=== PATIENT | male | born 1975 | race Caucasian/White ===

== ENCOUNTER 2016-12-22 16:39 | Emergency (ER) | payer SELFPAY ==
[2016-12-22 16:49] VITALS: BP 188/88
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
--- NOTE | 2016-12-22 18:09 | CT ---
CT lumbar spine Technique: Multiple axial sections through the lumbar spine were obtained from the top of T11 inferiorly through the L5-S1 disc. Reconstructed sagittal and coronal images were reviewed. Findings: The T11-T12 disc through the L2-3 disc appears within normal limits. L3-L4 disc shows very minimal disc bulge with posterior disc maintains a concave margin. Mild disc space narrowing at L4-L5 is seen. Diffuse broad-based disc bulge is seen with more posterior disc bulging asymmetrically to the right of midline. There is a small soft tissue density being seen superiorly posterior to the L4 vertebral body possibly due to small disc fragment from herniation. Disc effaces the anterior thecal sac. L5-S1: Mild posterior disc space narrowing is seen. Mild circumferential disc bulge is noted. No central canal stenosis or neural foraminal stenosis is seen. Impression: 1. Degenerative change as noted above. Most prominent finding is a diffuse broad-based disc bulge asymmetrically more prominent on the right side at L4-L5. This right sided disc bulge and could certainly cause impingement upon the right L5 nerve root. Small soft tissue density posterior to the L4 vertebral body is seen possibly due to small disc fragment from disc herniation. 2. MRI could be considered to further evaluate if clinically needed. Diagnostic code #3
== END 2016-12-22 18:59 | disposition home or self-care (01) ==
LOC: JD.ED 16:39
DX: M54.16 Radiculopathy, lumbar region (principal); M54.5 Low back pain
CPT/HCPCS: 72131; 72131-26; 99284; 99284-25